=== PATIENT | female | born 1970 | race African-American/Black ===

== ENCOUNTER 2019-01-08 07:39 | Emergency (ER) | payer MEDICAID ==
[2019-01-08] MEDS ORDERED: METHOCARBAMOL 500 MG TABLET PO ONE (08:34)
[2019-01-08] MEDS ORDERED: ACETAMINOPHEN 325 MG TABLET PO ONE (08:34)
--- NOTE | 2019-01-08 08:34 | ER Document Report ---
ED Blood Pressure Problem - General Chief Complaint: High Blood Pressure Stated Complaint: BLOOD PRESSURE ISSUES Time Seen by Provider: 01/08/19 08:09 Mode of Arrival: Ambulatory Information source: Patient Notes: Patient presents concerned that her blood pressure has been elevated over the week. Patient has been adjusting her blood pressure medications due to her increased blood pressure readings at home. Patient typically takes losartan 50 mg daily and went to an urgent care who advised her to take her blood pressure medicine twice a day to treat her high blood pressure. Patient states that yesterday she took her medicine 4 times in 1 day to help bring it down. Patient denies any chest pain. Patient does complain of upper back tenderness. Patient states she initially had a headache but that resolved at this time. Patient states she has had a cold but has not been taking any [id number] cough medications TRAVEL OUTSIDE OF THE [place] IN LAST 30 DAYS: No - HPI Onset: Last week Onset/Duration: Persistent Quality of pain: Achy Pain Level: 3 Associated symptoms: Other - Upper back pain. denies: Chest pain, Nausea, Vomiting Similar symptoms previously: No Recently seen / treated by doctor: Yes - Related Data Allergies/Adverse Reactions: No Known Allergies Allergy (Verified 01/08/19 07:51) Past Medical History - General Information source: Patient - Social History Smoking Status: Never Smoker Chew tobacco use (# tins/day): Yes - dip Frequency of alcohol use: Occasional Drug Abuse: None Lives with: Family Family History: Reviewed & Not Pertinent Patient has suicidal ideation: No Patient has homicidal ideation: No - Past Medical History Cardiac Medical History: Reports: Hx Hypertension Endocrine Medical History: Reports: Hx Diabetes Mellitus Type 2 GI Medical History: Reports: Hx Gastroesophageal Reflux Disease Surgical Hx: Negative Review of Systems - Review of Systems Constitutional: No symptoms reported. denies: Fever EENT: Nose congestion Cardiovascular: No symptoms reported. denies: Chest pain Respiratory: Cough. denies: Short of breath Gastrointestinal: No symptoms reported. denies: Abdominal pain, Nausea, Vomiting Genitourinary: No symptoms reported Female Genitourinary: No symptoms reported Musculoskeletal: Muscle pain - Upper back pain Skin: No symptoms reported Hematologic/Lymphatic: No symptoms reported Neurological/Psychological: No symptoms reported Physical Exam - Vital signs Vitals: Temp Pulse Resp BP Pulse Ox 98.7 F 93 18 176/99 H 100 01/08/19 07:43 01/08/19 07:43 01/08/19 07:43 01/08/19 07:43 01/08/19 07:43 - General General appearance: Appears well, Alert In distress: None - HEENT Head: Normocephalic, Atraumatic Eyes: Normal Conjunctiva: Normal Nasal: Normal Mouth/Lips: Normal Mucous membranes: Normal Neck: Normal, Supple. No: Lymphadenopathy - Respiratory Respiratory status: No respiratory distress Chest status: Nontender Breath sounds: Nonproductive cough. No: Rales, Rhonchi, Stridor, Wheezing Chest palpation: Normal - Cardiovascular Rhythm: Regular Heart sounds: S1 appreciated, S2 appreciated Murmur: No - Abdominal Inspection: Normal Distension: No distension Tenderness: Nontender - Back Back: Tender - Bilateral trapezius muscle tenderness. No: Vertebra tenderness - Extremities General upper extremity: Normal inspection, Nontender, Normal ROM General lower extremity: Normal inspection, Nontender, Normal ROM - Neurological Neuro grossly intact: Yes Cognition: Normal Isidro Coma Scale Eye Opening: Spontaneous Isidro Coma Scale Verbal: Oriented Isidro Coma Scale Motor: Obeys Commands Isidro Coma Scale Total: 15 - Psychological Associated symptoms: Normal affect, Normal mood - Skin Skin Temperature: Warm Skin Moisture: Dry Skin Color: Normal Course - Re-evaluation Re-evalutation: 01/08/19 12:08 Patient blood pressure 150/108 at this time. Patient denies any back pain symptoms. Consult with Dr. Agustin who recommends adding on Norvasc 10 mg in addition to her 100 mg/day losartan and advises f/u with pcp 01/08/19 13:26 Patient with no elevation in delta troponin at this time. Patient reports pain symptoms are improved. Patient stable for discharge at this time good return precautions discussed. - Vital Signs Vital signs: Temp Pulse Resp BP Pulse Ox 98.7 F 93 19 146/100 H 98 01/08/19 07:43 01/08/19 07:43 01/08/19 13:01 01/08/19 13:01 01/08/19 13:01 - Laboratory Result Diagrams: 01/08/19 09:15 01/08/19 09:15 Laboratory results interpreted by me: 01/08/19 01/08/19 09:15 09:15 Hgb 9.1 L Hct 29.1 L MCV 73 L MCH 22.8 L MCHC 31.3 L RDW 18.9 H BUN 6 L Total Protein 8.4 H Labs- Entire Visit 01/08/19 01/08/19 01/08/19 09:15 09:15 09:15 WBC 5.2 RBC 3.99 Hgb 9.1 L Hct 29.1 L MCV 73 L MCH 22.8 L MCHC 31.3 L RDW 18.9 H Plt Count 305 Lymph % (Auto) 31.7 [place] % (Auto) 8.9 Eos % (Auto) 0.6 Baso % (Auto) 0.7 Absolute Neuts (auto) 3.0 Absolute Lymphs (auto) 1.6 Absolute Monos (auto) 0.5 Absolute Eos (auto) 0.0 Absolute Basos (auto) 0.0 Seg Neutrophils % 58.1 Sodium 139.3 Potassium 4.2 Chloride 105 Carbon Dioxide 25 Anion Gap 9 BUN 6 L Creatinine 0.94 Est GFR ( Amer) > 60 Est GFR (MDRD) Non-Af > 60 Glucose 91 Calcium 9.7 Total Bilirubin 0.3 Direct Bilirubin 0.1 Neonat Total Bilirubin Not Reportable Neonat Direct Bilirubin Not Reportable Neonat Indirect Bili Not Reportable AST 19 ALT 10 Alkaline Phosphatase 49 Troponin I < 0.012 Total Protein 8.4 H Albumin 4.3 01/08/19 11:55 WBC RBC Hgb Hct MCV MCH MCHC RDW Plt Count Lymph % (Auto) [place] % (Auto) Eos % (Auto) Baso % (Auto) Absolute Neuts (auto) Absolute Lymphs (auto) Absolute Monos (auto) Absolute Eos (auto) Absolute Basos (auto) Seg Neutrophils % Sodium Potassium Chloride Carbon Dioxide Anion Gap BUN Creatinine Est GFR ( Amer) Est GFR (MDRD) Non-Af Glucose Calcium Total Bilirubin Direct Bilirubin Neonat Total Bilirubin Neonat Direct Bilirubin Neonat Indirect Bili AST ALT Alkaline Phosphatase Troponin I < 0.012 Total Protein Albumin - Diagnostic Test Radiology reviewed: Reports reviewed - EKG Interpretation by Me EKG shows normal: Sinus rhythm Rate: Normal Additional EKG results interpreted by me: 01/08/19 13:[address] elevation, QTc 433 Discharge - Discharge Clinical Impression: Elevated blood pressure reading, Upper back pain Upper respiratory infection Qualifiers: URI type: unspecified URI Qualified Code(s): J06.9 - Acute upper respiratory infection, unspecified Condition: Stable Disposition: HOME, SELF-CARE Instructions: Calcium Channel Blockers ([facility]), High Blood Pressure ([facility]), Muscle Relaxers ([facility]), Muscle Strain ([facility]), Upper Respiratory Illness ([facility]) Additional Instructions: Return immediately for any new or worsening symptoms Followup with your primary care provider, call tomorrow to make a followup ap pointment Only take your losartan as prescribed, do not take beyond take more than is recommended by your provider Monitor your blood pressure daily and keep a log to present to your doctor Prescriptions: Amlodipine Besylate [Norvasc 10 mg Tablet] 10 mg PO DAILY #15 tablet Methocarbamol [Robaxin 500 Mg Tablet] 500 mg PO QID PRN #16 tablet PRN Reason:
--- NOTE | 2019-01-08 09:14 | RADIOLOGY REPORT (SQ) ---
EXAM DESCRIPTION: CHEST 2 VIEWS COMPLETED DATE/TIME: 01/08/2019 9:03 am REASON FOR STUDY: cough COMPARISON: None. EXAM PARAMETERS: NUMBER OF VIEWS: two views TECHNIQUE: Digital Frontal and Lateral radiographic views of the chest acquired. RADIATION DOSE: NA LIMITATIONS: none FINDINGS: LUNGS AND PLEURA: No opacities, masses or pneumothorax. No pleural effusion. MEDIASTINUM AND HILAR STRUCTURES: No masses or contour abnormalities. HEART AND VASCULAR STRUCTURES: Heart normal size. No evidence for failure. BONES: No acute findings. HARDWARE: None in the chest. OTHER: No other significant finding. IMPRESSION: No focal consolidation or other evidence of acute cardiopulmonary process. TECHNICAL DOCUMENTATION: JOB ID: [id number] [employer]- All Rights Reserved Reading location - IP/workstation name: [email or web address]
[2019-01-08 09:53] LABS: ABSOLUTE LYMPHOCYTES (AUTO) 1.6 10^3/uL (0.5-4.7); ABSOLUTE MONOCYTES (AUTO) 0.5 10^3/uL (0.1-1.4); BASOPHILS % (AUTO) 0.7 % (0-2); EOSINOPHILS % (AUTO) 0.6 % (0-6); HEMATOCRIT 29.1 % (36.0-47.0); HEMOGLOBIN 9.1 g/dL (12.0-15.5); LYMPHOCYTES % (AUTO) 31.7 % (13-45); MEAN CORPUSCULAR HEMOGLOBIN 22.8 pg (27.0-33.4); MEAN CORPUSCULAR HGB CONC 31.3 g/dL (32.0-36.0); MEAN CORPUSCULAR VOLUME 73 fl (80-97); MONOCYTES % (AUTO) 8.9 % (3-13); PLATELET COUNT 305 10^3/uL (150-450); RED BLOOD COUNT 3.99 10^6/uL (3.72-5.28); RED CELL DISTRIBUTION WIDTH 18.9 % (11.5-14.0); SEGMENTED NEUTROPHILS % (AUTO) 58.1 % (42-78); TOTAL CELLS COUNTED % (AUTO) 100 %; WHITE BLOOD COUNT 5.2 10^3/uL (4.0-10.5)
[2019-01-08 10:13] LABS: ALBUMIN 4.3 g/dL (3.5-5.0); ALKALINE PHOSPHATASE 49 U/L (38-126); ANION GAP 9 (5-19); ASPARTATE AMINO TRANSFERASE 19 U/L (14-36); BILIRUBIN,DIRECT 0.1 mg/dL (0.0-0.4); BILIRUBIN,TOTAL 0.3 mg/dL (0.2-1.3); BLOOD UREA NITROGEN 6 mg/dL (7-20); CALCIUM 9.7 mg/dL (8.4-10.2); CARBON DIOXIDE 25 mmol/L (22-30); CHLORIDE 105 mmol/L (98-107); GLUCOSE 91 mg/dL (75-110); POTASSIUM 4.2 mmol/L (3.6-5.0); TOTAL PROTEIN 8.4 g/dL (6.3-8.2)
[2019-01-08] MEDS ORDERED: AMLODIPINE BESYLATE 10 MG TABLET PO ONE (12:07)
[2019-01-08 13:09] VITALS: BP 146/100
--- NOTE | 2019-01-08 13:39 | EKG REPORT ---
SEVERITY:- ABNORMAL ECG - SINUS RHYTHM LEFT VENTRICULAR HYPERTROPHY : Confirmed by: Mckenzie Thompson MD 08-Jan-2019 13:38:31
== END 2019-01-08 13:49 | disposition home or self-care (01) ==
LOC: ER 07:39
DX: J06.9 Acute upper respiratory infection, unspecified (principal); M54.6 Pain in thoracic spine; I10 Essential (primary) hypertension; Z79.899 Other long term (current) drug therapy; E11.9 Type 2 diabetes mellitus without complications
CPT/HCPCS: 93005; 36415; 85025; 80053; 84484; 71046; 93010; J3490 ×2; 99284